=== PATIENT | female | born 1970 | race Caucasian/White ===

== ENCOUNTER → 2016-12-29 | Outpatient (CLI) | payer BC ==
[2015-09-24 14:24] VITALS: BP 125/76
[~2016-12-29] MED LIST: HYDR1TAB10 PO; LEVO500T59 PO; LISINOPRIL PO; SERT50TA PO; SPIR25TA3 PO
== END | disposition home or self-care (01) ==
LOC: KCIC 15:39
PROVIDERS: ATTEND Family Medicine

== ENCOUNTER → 2017-01-01 | Outpatient (CLI) | payer BC ==
[2015-09-24 14:24] VITALS: BP 125/76
--- NOTE | 2017-01-01 17:32 | KCIC ---
History: Left distal thigh pain and tenderness traveling up the leg. Comparison: None. Findings: AP and lateral views of the left femur, 4 images. No acute fracture or dislocation is identified. Small calcifications are seen adjacent to the greater tuberosity, may be enthesophytes. Impression: No acute osseous abnormality identified. Electronically signed by: Willian Andrews MD (01/01/2017 5:30 PM) [facility]
== END | disposition home or self-care (01) ==
LOC: KCIC 16:46
PROVIDERS: ATTEND Family Medicine
DX: M79.605 Pain in left leg (principal); I10 Essential (primary) hypertension; E78.00 Pure hypercholesterolemia, unspecified; J45.909 Unspecified asthma, uncomplicated; Z98.51 Tubal ligation status
CPT/HCPCS: 73552

== ENCOUNTER → 2019-02-12 | Outpatient (CLI) | payer BC ==
[2015-09-24 14:24] VITALS: BP 125/76
[~2019-02-12] MED LIST changes: -SPIR25TA3 PO; +SPIR25TA5 PO
--- NOTE | 2019-02-12 15:12 | KCIC ---
EXAM: AP, oblique and lateral views of the right knee DATE: 02/12/2019 12:00 AM INDICATION: Right knee pain COMPARISON: No Prior FINDINGS/ IMPRESSION: No evidence of acute fracture or dislocation. Mild medial compartment joint space narrowing with small associated osteophytes. Small right knee joint effusion. Electronically signed by: Hiram Hernández MD (02/12/2019 3:09 PM) [id number]
== END | disposition home or self-care (01) ==
LOC: KCIC 10:28
PROVIDERS: ATTEND Nurse Practitioner Family
DX: M25.461 Effusion, right knee (principal); M25.761 Osteophyte, right knee; Z68.41 Body mass index [BMI] 40.0-44.9, adult
CPT/HCPCS: 73562

== ENCOUNTER → 2019-03-24 | Outpatient (CLI) | payer BC ==
[2015-09-24 14:24] VITALS: BP 125/76
--- NOTE | 2019-03-24 17:07 | KCIC ---
EXAM: MRI RIGHT KNEE DATE: 03/24/2019 3:15 PM CLINICAL INDICATION: RIGHT MEDIAL KNEE PAIN. POSITIVE McMURRAYS TEST COMPARISON: Radiographs 02/12/2019 TECHNIQUE: Multiplanar, multisequence MRI of the right knee was performed without contrast. FINDINGS: Small right knee joint effusion. Trace Saenz's cyst. The ACL and PCL are intact. The MCL, fibular collateral ligament, biceps femoris and IT band are intact. The popliteus is normal in signal and morphology, intact. Extensor mechanism is intact. Neutral patellar tracking. Medial meniscus: There is a partial-thickness radial tear at the posterior horn-body of the medial meniscus. Lateral meniscus: Intact No fracture or osteonecrosis. Right knee joint osteoarthritis with mild medial and patellofemoral chondral thinning with regions of chondral fissuring at the patellar apex and subchondral edema. Mild posterior tibial subchondral cystic change at the PCL attachment. IMPRESSION: 1. Posterior horn-body medial meniscus partial-thickness radial tear 2. Small right knee joint effusion. 3. Right knee joint osteoarthritis most prominent at the medial and patellofemoral compartments Electronically signed by: Hiram Hernández MD (03/24/2019 5:04 PM) [id number]
== END | disposition home or self-care (01) ==
LOC: KCIC MRI 11:28
PROVIDERS: ATTEND Orthopaedic Surgery
DX: S83.241A Other tear of medial meniscus, current injury, right knee, initial encounter (principal); M71.21 Synovial cyst of popliteal space [Baker], right knee; M25.461 Effusion, right knee; M17.11 Unilateral primary osteoarthritis, right knee; Z90.49 Acquired absence of other specified parts of digestive tract; Z90.89 Acquired absence of other organs; Z90.710 Acquired absence of both cervix and uterus; Z98.51 Tubal ligation status; X58.XXXA Exposure to other specified factors, initial encounter; Y93.89 Activity, other specified; Y92.89 Other specified places as the place of occurrence of the external cause; Y99.8 Other external cause status
CPT/HCPCS: 73721

== ENCOUNTER → 2019-10-09 | Outpatient (CLI) | payer BC ==
[2015-09-24 14:24] VITALS: BP 125/76
[~2019-10-09] MED LIST changes: +ALBU2.5V8 INH; +AZEL137S3 NS; +CETI10TA16 PO; +LISI1TAB37 PO; +NARA2.5T PO; +OMEP40CA45 PO
--- NOTE | 2019-10-09 14:07 | KCIC ---
EXAM: 1. LEFT ANKLE 3 VIEWS. 2. LEFT FOOT 2 VIEWS. HISTORY: Left foot and ankle pain. COMPARISON: None. FINDINGS: There is mild soft tissue swelling about the ankle. Soft tissue calcifications are noted along the distal lamar, consistent with prior injury or venous insufficiency. No fractures are identified about the ankle. The alignment of the mortise is maintained. Joint spaces are maintained. No fractures are identified in the foot. Alignment is normal. There is moderate tarsometatarsal osteoarthritis. IMPRESSION: 1. No fracture. Soft tissue swelling about the ankle. 2. Moderate tarsometatarsal osteoarthritis. Electronically signed by: Andi Espinoza MD (10/09/2019 2:04 PM) [id number]
== END | disposition home or self-care (01) ==
LOC: KCIC 11:26
PROVIDERS: ATTEND Family Medicine
DX: M19.072 Primary osteoarthritis, left ankle and foot (principal); M25.872 Other specified joint disorders, left ankle and foot; M79.89 Other specified soft tissue disorders
CPT/HCPCS: 73610; 73620